=== PATIENT | male | born 1980 | race Caucasian/White ===

== ENCOUNTER → 2019-05-30 | Outpatient (CLI) | payer SELFPAY ==
--- NOTE | 2019-05-30 10:20 | Diagnostic Imaging Report ---
Clinical indication: Patient with chest pain, pleuritic pain. Exam: Chest x-ray PA and lateral views. Comparison: None. Findings: Lungs are clear. There is no pleural effusion or pneumothorax. Pulmonary vasculature and cardiac silhouette within normal limits. There are minimal sized degenerative spurs involving the thoracic spine. Impression: There is no radiographic evidence of acute cardiopulmonary process. Dictated by: Dictated on workstation # [id number]
== END ==
LOC: RAD FS 09:36
PROVIDERS: ATTEND Nurse Practitioner Family
DX: R07.81 Pleurodynia (principal)
CPT/HCPCS: 71046

== ENCOUNTER 2020-01-16 17:39 | Emergency (ER) | payer SELFPAY ==
[~2020-01-16] VITALS: Ht 183 cm; Wt 138.4 kg
--- NOTE | 2020-01-16 17:56 | ED General ---
General Stated Complaint: LOWER BACK PAIN,LIGHTHEADED,ABD PAIN Source of Information: Patient Exam Limitations: No Limitations (SHANA TAVAREZ DO) History of Present Illness Date Seen by Provider: Jan 16, 2020 Time Seen by Provider: 17:45 Initial Comments The patient is a 40-year-old male presents for evaluation of some low back discomfort to bilateral flanks which started about 2-3 weeks ago as well as bright-colored urine. He states he's had a kidney infection past and he is concerned that his was currently going on. He also reports feeling lightheaded and having diarrhea which started earlier today. He is currently on amoxicillin for a dental infection. He states that his diarrhea has been watery and just a few episodes today. He denies any recent travel, rectal bleeding, abdominal pain, chest pain, dizziness or syncope. He does report some shortness of breath with exertion over the last few days. Timing/Duration: 1 Week Severity: Mild Associated Systoms: Shortness of Air (SHANA TAVAREZ DO) Allergies and Home Medications Allergies Coded Allergies: No Known Drug Allergies (Unverified , 01/16/20) Patient Home Medication List Home Medication List Reviewed: Yes (SHANA TAVAREZ DO) Review of Systems Review of Systems Constitutional: no symptoms reported EENTM: no symptoms reported Respiratory: dyspnea on exertion Cardiovascular: no symptoms reported Gastrointestinal: diarrhea, other (b/l flank soreness) Genitourinary: other ("bright urine") Musculoskeletal: no symptoms reported Skin: no symptoms reported Psychiatric/Neurological: No Symptoms Reported Hematologic/Lymphatic: No Symptoms Reported Immunological/Allergic: no symptoms reported (SHANA TAVAREZ DO) All Other Systems Reviewed Negative Unless Noted: Yes (SHANA TAVAREZ DO) Past Nxpcqvd-Tpwdao-Tkhsob Hx Past Med/Social Hx: Reviewed Nursing Past Med/Soc Hx (SHANA TAVAREZ DO) Patient Social History Recent Foreign Travel: No Contact w/Someone Who Travel: No (SHANA TAVAREZ DO) Physical Exam Vital Signs Vital Signs - First Documented 01/16/20 17:40 Temp 37.1 Pulse 100 Resp 18 B/P (MAP) 157/89 (111) Pulse Ox 97 O2 Delivery Room Air (YAZ ARGUETA MD) Vital Signs Capillary Refill : (SHANA TAVAREZ DO) Height, Weight, BMI Height: '" Weight: lbs. oz. kg; BMI Method: General Appearance: No Apparent Distress, WD/WN Eyes: Bilateral Eye Normal Inspection, Bilateral Eye PERRL, Bilateral Eye EOMI HEENT: PERRL/EOMI, Pharynx Normal Neck: Full Range of Motion, Normal Inspection Respiratory: Chest Non Tender, Lungs Clear, Normal Breath Sounds, No Accessory Muscle Use Cardiovascular: Regular Rate, Rhythm, No Edema, No JVD Gastrointestinal: Normal Bowel Sounds, Non Tender, Soft Back: Other (b/l flank ttp - mild) Extremity: Normal Capillary Refill, Normal Inspection, Non Tender Neurologic/Psychiatric: Alert, Oriented x3, No Motor/Sensory Deficits, Normal Mood/Affect Skin: Normal Color, Warm/Dry (SHANA TAVAREZ DO) Progress/Results/Core Measures Suspected Sepsis SIRS Temperature: Pulse: Respiratory Rate: Blood Pressure / Mean: (SHANA TAVAREZ DO) Results/Orders Lab Results Laboratory Tests Test 01/16/20 17:55 01/16/20 19:42 Range/Units White Blood Count 9.9 4.3-11.0 10^3/uL Red Blood Count 5.29 4.35-5.85 10^6/uL Hemoglobin 15.9 13.3-17.7 G/DL Hematocrit 47 40-54 % Mean Corpuscular Volume 89 80-99 FL Mean Corpuscular Hemoglobin 30 25-34 PG Mean Corpuscular Hemoglobin Concent 34 32-36 G/DL Red Cell Distribution Width 14.1 10.0-14.5 % Platelet Count 202 130-400 10^3/uL Mean Platelet Volume 10.4 7.4-10.4 FL Neutrophils (%) (Auto) 79 H 42-75 % Lymphocytes (%) (Auto) 11 L 12-44 % Monocytes (%) (Auto) 8 0-12 % Eosinophils (%) (Auto) 1 0-10 % Basophils (%) (Auto) 1 0-10 % Neutrophils # (Auto) 7.8 1.8-7.8 X 10^3 Lymphocytes # (Auto) 1.1 1.0-4.0 X 10^3 Monocytes # (Auto) 0.8 0.0-1.0 X 10^3 Eosinophils # (Auto) 0.1 0.0-0.3 10^3/uL Basophils # (Auto) 0.0 0.0-0.1 10^3/uL Sodium Level 136 135-145 MMOL/L Potassium Level 4.1 3.6-5.0 MMOL/L Chloride Level 99 98-107 MMOL/L Carbon Dioxide Level 25 21-32 MMOL/L Anion Gap 12 5-14 MMOL/L Blood Urea Nitrogen 14 7-18 MG/DL Creatinine 1.13 0.60-1.30 MG/DL Estimat Glomerular Filtration Rate > 60 BUN/Creatinine Ratio 12 Glucose Level 108 H 70-105 MG/DL Calcium Level 8.7 8.5-10.1 MG/DL Corrected Calcium 8.5 8.5-10.1 MG/DL Total Bilirubin 0.9 0.1-1.0 MG/DL Aspartate Amino Transf (AST/SGOT) 17 5-34 U/L Alanine Aminotransferase (ALT/SGPT) 23 0-55 U/L Alkaline Phosphatase 73 40-136 U/L Total Protein 7.4 6.4-8.2 GM/DL Albumin 4.2 3.2-4.5 GM/DL Lipase 17 8-78 U/L Urine Color DARK YELLOW Urine Clarity CLEAR Urine pH 6.0 5-9 Urine Specific [place] >=1.030 1.016-1.022 Urine Protein NEGATIVE NEGATIVE Urine Glucose (UA) NEGATIVE NEGATIVE Urine Ketones NEGATIVE NEGATIVE Urine Nitrite NEGATIVE NEGATIVE Urine Bilirubin NEGATIVE NEGATIVE Urine Urobilinogen 0.2 < = 1.0 MG/DL Urine Leukocyte Esterase NEGATIVE NEGATIVE Urine RBC (Auto) 1+ H NEGATIVE Urine RBC 2-5 H /HPF Urine WBC RARE /HPF Urine Squamous Epithelial Cells 0-2 /HPF Urine Crystals NONE /LPF Urine Bacteria NEGATIVE /HPF Urine Casts NONE /LPF Urine Mucus MODERATE H /LPF Urine Culture Indicated NO (YAZ ARGUETA MD) My Orders Orders - YAZ ARGUETA MD Ns Iv 1000 Ml (Sodium Chloride 0.9%) (01/16/20 19:30) Ns Iv 500 Ml (Sodium Chloride 0.9%) (01/16/20 19:25) (YAZ ARGUETA MD) Medications Given in ED Current Medications Medications Dose Ordered Sig/Chad Route Start Time Stop Time Status Last Admin Dose Admin Sodium Chloride 500 ml @ ud STK-MED ONCE .ROUTE 01/16/20 19:25 01/16/20 19:32 DC 01/16/20 19:36 500 MLS/HR (YAZ ARGUETA MD) Vital Signs/I&O 01/16/20 17:40 Temp 37.1 Pulse 100 Resp 18 B/P (MAP) 157/89 (111) Pulse Ox 97 O2 Delivery Room Air (YAZ ARGUETA MD) Vital Signs/I&O Capillary Refill : (SHANA TAVAREZ DO) Progress Note : Progress Note @1800 - Pt care transferred to Dr. Argueta at this time. Awaiting lab and imaging results. (SHANA TAVAREZ DO) Progress Note : Progress Note Negative evaluation in the emergency department. Patient does have mucus in the urine. We'll treat with doxycycline and clean. Patient be discharged home (YAZ ARGUETA MD) ECG Initial ECG Impression Date: Jan 16, 2020 Initial ECG Impression Time: 20:22 Initial ECG Rate: 88 Initial ECG Rhythm: Normal Sinus Initial ECG Intervals: Normal Initial ECG Impression: Normal Initial ECG Comparisson: No Previous ECG Available (YAZ ARGUETA MD) Departure Impression Primary Impression: Back pain Disposition: HOME, SELF-CARE Condition: Improved Departure-Patient Inst. Decision time for Depature: 20:22 (YAZ ARGUETA MD) Referrals: [facility] (PCP) Primary Care Physician SHIRLENE HARO APRN (Family) Primary Care Physician Patient Instructions: Low Back Pain (DC) Add. Discharge Instructions: Alternate heat and ice for low back pain. Take medications as instructed. Follow-up with primary care physician in 2-3 days. Scripts Doxycycline Hyclate (Doxycycline Hyclate) 100 Mg Capsule 100 MG PO BID for 7 Days, #14 CAP 0 Refills Prov: YAZ ARGUETA MD 01/16/20 Diclofenac Sodium (Diclofenac Sodium) 75 Mg Tablet.dr 75 MG PO BID for Back Pain for 7 Days, #20 TAB 0 Refills Prov: YAZ ARGUETA MD 01/16/20 SHANA TAVAREZ DO Jan 16, 2020 17:56 YAZ ARGUETA MD Jan 16, 2020 18:07
[2020-01-16] MEDS ORDERED: Amoxicillin (18:10)
[2020-01-16 18:12] LABS: HEMATOCRIT 47 % (40-54); HEMOGLOBIN 15.9 G/DL (13.3-17.7); LYMPHOCYTES % (AUTO) 11 % (12-44); MEAN CORPUSCULAR HEMOGLOBIN 30 PG (25-34); MEAN CORPUSCULAR HGB CONC 34 G/DL (32-36); MEAN CORPUSCULAR VOLUME 89 FL (80-99); MEAN PLATELET VOLUME 10.4 FL (7.4-10.4); MONOCYTES % (AUTO) 8 % (0-12); PLATELET COUNT 202 10^3/uL (130-400); RED CELL DISTRIBUTION WIDTH 14.1 % (10.0-14.5); WHITE BLOOD COUNT 9.9 10^3/uL (4.3-11.0)
[2020-01-16 18:13] LABS: BASOPHILS % (AUTO) 1 % (0-10); EOSINOPHILS # (AUTO) 0.1 10^3/uL (0.0-0.3); EOSINOPHILS % (AUTO) 1 % (0-10); LYMPHOCYTES # (AUTO) 1.1 X 10^3 (1.0-4.0); MONOCYTES # (AUTO) 0.8 X 10^3 (0.0-1.0); NEUTROPHILS # (AUTO) 7.8 X 10^3 (1.8-7.8); NEUTROPHILS % (AUTO) 79 % (42-75)
[2020-01-16 18:20] LABS: BUN/CREATININE RATIO 12; CARBON DIOXIDE 25 MMOL/L (21-32); CHLORIDE 99 MMOL/L (98-107); CREATININE SERUM 1.13 MG/DL (0.60-1.30); GFR ESTIMATED > 60; GLUCOSE 108 MG/DL (70-105); POTASSIUM 4.1 MMOL/L (3.6-5.0); SODIUM 136 MMOL/L (135-145)
[2020-01-16 18:21] LABS: ALANINE AMINOTRANSFERASE 23 U/L (0-55); ALBUMIN 4.2 GM/DL (3.2-4.5); ALKALINE PHOSPHATASE 73 U/L (40-136); BILIRUBIN,TOTAL 0.9 MG/DL (0.1-1.0); CALCIUM 8.7 MG/DL (8.5-10.1); LIPASE 17 U/L (8-78); TOTAL PROTEIN 7.4 GM/DL (6.4-8.2)
--- NOTE | 2020-01-16 18:21 | Diagnostic Imaging Report ---
INDICATION: Lower back pain and lightheadedness for 2 weeks. FINDINGS: Frontal view of the chest demonstrates the lungs to be clear. Heart, mediastinum, pulmonary vascularity and the visualized bony thorax are normal. IMPRESSION: Negative chest. Dictated by: Dictated on workstation # [id number]
--- NOTE | 2020-01-16 18:25 | Diagnostic Imaging Report ---
PROCEDURE: CT abdomen and pelvis without contrast. TECHNIQUE: Multiple contiguous axial images were obtained through the abdomen and pelvis without the use of intravenous contrast. Auto Exposure Controls were utilized during the CT exam to meet ALARA standards for radiation dose reduction. INDICATION: Low back pain and lightheadedness. COMPARISON: No prior studies are available for comparison. FINDINGS: The lung bases are clear. The liver and gallbladder are unremarkable. No biliary ductal dilatation is seen. Pancreas and spleen are unremarkable. No adrenal mass is detected. No renal calculi are identified. No ureteral calculi or evidence of hydronephrosis is detected. Aorta is nonaneurysmal. Postsurgical changes in the right lower quadrant are identified. Bowel loops are normal caliber. There are some occasional fluid-filled small bowel loops, nonspecific but can be seen with enteritis. No free fluid or fluid collection is identified. The bladder and prostate are unremarkable. The bony structures appear non-acute. IMPRESSION: Mild nonspecific fluid-filled small bowel loops, perhaps owing to enteritis. The study is otherwise unremarkable. Dictated by: Dictated on workstation # [id number]
[2020-01-16] MEDS ORDERED: NS IV 500 ML 500 ML ONE (19:25)
[2020-01-16] MEDS ORDERED: NS IV 1000 ML 1,000 ML IV SCH (19:30)
[2020-01-16 19:51] LABS: CLARITY,URINE CLEAR; COLOR,URINE DARK YELLOW; GLUCOSE, URINE (UA) NEGATIVE (NEGATIVE); PROTEIN,URINE NEGATIVE (NEGATIVE)
[2020-01-16 19:52] LABS: BILIRUBIN,URINE NEGATIVE (NEGATIVE); KETONES,URINE NEGATIVE (NEGATIVE); LEUKOCYTE ESTERASE ,URINE NEGATIVE (NEGATIVE); NITRITE,URINE NEGATIVE (NEGATIVE)
[2020-01-16 19:54] LABS: BACTERIA,URINE NEGATIVE /HPF; SQUAMOUS EPITHELIAL CELL,UR 0-2 /HPF; WBC,URINE RARE /HPF
[2020-01-16] MEDS ORDERED: DICL75TA2 PO (20:24)
[2020-01-16] MEDS ORDERED: DOXY100C2 PO (20:24)
[2020-01-16 20:26] VITALS: BP 155/97
--- OUTSIDE RECORDS SUMMARY | 2020-01-18 21:37 | XMS REPORT | Continuity of Care Document ---
Demographics x Preferred Language Unknown Marital Status Unknown [employer] Affiliation Unknown Race Unknown Ethnic Group Unknown Author Organization Unknown Address Unknown Phone Unavailable Allergies Active Description Code Type Severity Reaction Onset Reported/Identified Relationship to Patient Clinical Status Yes No Known Drug Allergies [id number] Drug Allergy Unknown N/A 01/16/2020 Medications There is no data. Problems Date Dx Coded Attending Type Code Diagnosis Diagnosed By 01/16/2020 FERNANDA HARO Ot R07.81 PLEURODYNIA Procedures There is no data. Results Test Result Range [facility] - 04/05/19 12:05 GLUCOSE 89 mg/dL 65-99 UREA NITROGEN (BUN) 13 mg/dL 7-25 CREATININE 0.91 mg/dL 0.60-1.35 eGFR NON-AFR. [place] 105 mL/min/1.73m2 > OR = 60 eGFR 122 mL/min/1.73m2 > OR = 60 BUN/CREATININE RATIO NOT APPLICABLE (calc) 6-22 SODIUM 138 mmol/L 135-146 POTASSIUM 4.4 mmol/L 3.5-5.3 CHLORIDE 103 mmol/L 98-110 CARBON DIOXIDE 27 mmol/L 20-32 CALCIUM 9.2 mg/dL 8.6-10.3 PROTEIN, TOTAL 7.1 g/dL 6.1-8.1 ALBUMIN 4.4 g/dL 3.6-5.1 GLOBULIN 2.7 g/dL (calc) 1.9-3.7 ALBUMIN/GLOBULIN RATIO 1.6 (calc) 1.0-2. 5 BILIRUBIN, TOTAL 0.8 mg/dL 0.2-1.2 ALKALINE PHOSPHATASE 60 U/L 40-115 AST 17 U/L 10-40 ALT 20 U/L 9-46 CBC - 04/05/19 12:05 WHITE BLOOD CELL COUNT 8.2 Thousand/uL 3 .8-10.8 RED BLOOD CELL COUNT 5.45 Million/uL 4.2 0-5.80 HEMOGLOBIN 15.9 g/dL 13.2-17.1 HEMATOCRIT 47.8 % 38.5-50.0 MCV 87.7 fL 80.0-100.0 MCH 29.2 pg 27.0-33.0 MCHC 33.3 g/dL 32.0-36.0 RDW 13.5 % 11.0-15.0 PLATELET COUNT 251 Thousand/uL 140-400 MPV 11.2 fL 7.5-12.5 ABSOLUTE NEUTROPHILS 5043 cells/uL 1500- 7800 ABSOLUTE LYMPHOCYTES 2411 cells/uL 850-3 900 ABSOLUTE MONOCYTES 607 cells/uL 200-950 ABSOLUTE EOSINOPHILS 98 cells/uL 15-500 ABSOLUTE BASOPHILS 41 cells/uL 0-200 NEUTROPHILS 61.5 % NRG LYMPHOCYTES 29.4 % NRG MONOCYTES 7.4 % NRG EOSINOPHILS 1.2 % NRG BASOPHILS 0.5 % NRG Complete blood count (CBC) with automate d white blood cell (WBC) differential - 01/16/20 17:55 Blood leukocytes automated count (number/volume) 9.9 10*3/uL 4.3-11.0 Blood erythrocytes automated count (number/volume) 5.29 10*6/uL 4.35-5.85 Venous blood hemoglobin measurement (mass/volume) 15.9 g/dL 13.3-17.7 Blood hematocrit (volume fraction) 47 % 40-54 Automated erythrocyte mean corpuscular volume 89 [ foz_us] 80-99 Automated erythrocyte mean corpuscular h emoglobin (mass per erythrocyte) 30 pg 25-34 Automated erythrocyte mean corpuscular h emoglobin concentration measurement (mass/volume) 34 g/dL 32-36 Automated erythrocyte distribution width ratio 14. 1 % 10.0- 14.5 Automated blood platelet count (count/volume) 202 10*3/uL 130-400 Automated blood platelet mean volume measurement 10.4 [foz_us] 7.4-10.4 Automated blood neutrophils/100 leukocytes 79 % 42-75 Automated blood lymphocytes/100 leukocytes 11 % 12-44 Blood monocytes/100 leukocytes 8 % 0-12 Automated blood eosinophils/100 leukocytes 1 % 0-10 Automated blood basophils/100 leukocytes 1 % 0-10 Blood neutrophils automated count (number/volume) 7.8 10*3 1.8-7.8 Blood lymphocytes automated count (number/volume) 1.1 10*3 1.0-4.0 Blood monocytes automated count (number/volume) 0. 8 10*3 0.0-1.0 Automated eosinophil count 0.1 10*3/uL 0 .0-0.3 Automated blood basophil count (count/volume) 0.0 10*3/uL 0.0-0.1 Comprehensive metabolic panel - 01/16/20 17:55 Serum or plasma sodium measurement (moles/volume) 136 mmol/L 135-145 Serum or plasma potassium measurement (moles/volume) 4.1 mmol/L 3.6-5.0 Serum or plasma chloride measurement (moles/volume) 99 mmol/L 98-107 Carbon dioxide 25 mmol/L 21-32 Serum or plasma anion gap determination (moles/volume) 12 mmol/L 5-14 Serum or plasma urea nitrogen measurement (mass/volume ) 14 mg/dL 7-18 Serum or plasma creatinine measurement (mass/volume) 1.13 mg/dL 0.60-1.30 Serum or plasma urea nitrogen/creatinine mass ratio 12 NRG Serum or plasma creatinine measurement w ith calculation of estimated glomerular filtration rate > NRG Serum or plasma glucose measurement (mass/volume) 108 mg/dL 70-105 Serum or plasma calcium measurement (mass/volume) 8.7 mg/dL 8.5-10.1 Serum or plasma total bilirubin measurement (mass/volu me) 0.9 mg/dL 0.1-1.0 Serum or plasma alkaline phosphatase ca surement (enzymatic activity/volume) 73 U/L 40-136 Serum or plasma aspartate aminotransfera se measurement (enzymatic activity/volume) 17 U/L 5-34 Serum or plasma alanine aminotransferase measurement (enzymatic activity/volume) 23 U/L 0-55 Serum or plasma protein measurement (mass/volume) 7.4 g/dL 6.4-8.2 Serum or plasma albumin measurement (mass/volume) 4.2 g/dL 3.2-4.5 CALCIUM CORRECTED 8.5 mg/dL 8.5-10.1 Lipase - 01/16/20 17:55 Lipase 17 U/L 8-78 Complete urinalysis with reflex to cultu re - 01/16/20 19:42 Urine color determination DARK YELLOW N RG Urine clarity determination CLEAR NR G Urine pH measurement by test strip 6.0 5-9 Specific gravity of urine by test strip >= 1.016-1.022 Urine protein assay by test strip, semi-quantitative NEGATIVE NEGATIVE Urine glucose detection by automated test strip NE GATIVE NEGATIVE Erythrocytes detection in urine sediment by light micr oscopy 1+ NEGATIVE Urine ketones detection by automated test strip NE GATIVE NEGATIVE Urine nitrite detection by test strip NEGATIVE NEGATIVE Urine total bilirubin detection by test strip NEGA TIVE NEGATIVE Urine urobilinogen measurement by automated test strip (mass/volume) 0.2 mg/dL < = 1.0 Urine leukocyte esterase detection by dipstick NEG ATIVE NEGATIVE Automated urine sediment erythrocyte cou nt by microscopy (number/high power field) [HPF] NRG Automated urine sediment leukocyte count by microscopy (number/high power field) RARE NRG Bacteria detection in urine sediment by light microsco py NEGATIVE NRG Squamous epithelial cells detection in u rine sediment by light microscopy 0-2 NRG Crystals detection in urine sediment by light microsco py NONE NRG Casts detection in urine sediment by light microscopy NONE NRG Mucus detection in urine sediment by light microscopy MODERATE NRG Complete urinalysis with reflex to culture NO NRG Encounters ACCT No. Visit Date/Time Discharge Status Pt. Type Provider Facility Loc./Unit Complaint [id number] 06/06/2019 09:15:00 06/06/2019 23:59: 59 CLS Outpatient [facility] [id number] 04/05/2019 11:00:00 Document Registration [id number] 01/16/2020 17:41:00 020 20:31:00 DIS Emergency YAZ QUIÑONES MD [facility] ER FS LOWER BACK PAIN,LIGHTHE ADED,ABD PAIN [id number] 05/30/2019 09:36:00 019 23:59:59 CLS Outpatient FERNANDA HARO [facility] RAD FS R07.81
== END 2020-01-16 20:31 | disposition home or self-care (01) ==
LOC: EDUNIT# 17:39 → ER FS 17:41
DX: M54.5 Low back pain (principal)
CPT/HCPCS: 36415; 71045; 74176; 80053; 81000; 83690; 85025; 93005